=== PATIENT | male | born 1960 | race Caucasian/White ===

== ENCOUNTER → 2024-03-27 | Outpatient (CLI) | payer SELFPAY, OTHER ==
--- NOTE | 2024-03-27 07:33 | CT_ITS ---
EXAM: CT RIGHT LOWER EXTREMITY WITHOUT INTRAVENOUS CONTRAST CLINICAL INDICATION: templating for right TKA TECHNIQUE: Helically acquired images were obtained of the right lower extremity without intravenous contrast. 2-D reformats were performed by the technologist. CTDIvol = ( 18.81 ) mGy, DLP = ( 1090.21 ) mGycm This CT exam was performed using one or more of the following dose reduction techniques: automated exposure control, adjustment of the mA and/or kV according to patient size, and/or use of iterative reconstruction technique. COMPARISON: No relevant prior studies available. FINDINGS: BONES/JOINTS: Ankle mortise is intact. Small subchondral lucencies indicating osteochondral defect or lesion at the lateral talar dome. This can be further investigation with MRI if concerned. Moderate tricompartmental osteoarthrosis, worse at the medial femorotibial compartment with 8 mm of lateral subluxation of the tibia relative to the femur. Mild to moderate right hip joint osteoarthrosis. At least a moderate amount suprapatellar joint fluid. Small bone island at the femoral head. No acute or healing fracture or malalignment. SOFT TISSUES: Unremarkable. No soft tissue swelling or gas. No radiopaque foreign body. VASCULATURE: Peripheral vascular calcifications at the level of the ankle. No soft tissue masses or fluid collections. OTHER FINDINGS: Distal colonic diverticulosis but no acute diverticulitis. No free fluid in the pelvis. CT/Extremity Lower without Contra IMPRESSION: 1. Moderate tricompartmental osteoarthrosis, worse at the medial femorotibial compartment with 8 mm of lateral subluxation of the tibia relative to the femur. 2. At least a moderate amount suprapatellar joint fluid. 3. Ankle mortise is intact. Small subchondral lucencies indicating osteochondral defect or lesion at the lateral talar dome. This can be further investigation with MRI if concerned. Electronically Signed: Sanford House MD at 10:52 EDT ,
== END | disposition home or self-care (01) ==
LOC: CT 07:28
PROVIDERS: PCP Family Medicine; Referring Provider Orthopaedic Surgery; Visit Provider Orthopaedic Surgery
DX: M17.11 Unilateral primary osteoarthritis, right knee (principal)
CPT/HCPCS: 73700

== ENCOUNTER 2024-04-11 08:50 | Day surgery (SDC) | payer SELFPAY, OTHER ==
[2024-03-27 08:21] LABS: Absolute Lymphocyte Count 1.74 X10^3/uL (0.83-4.51); Absolute Neutrophil Count 4.1 X10^3/uL (2.0-7.7); Basophil# 0.08 X10^3/uL; Basophil% 1.2 % (0-1); Eosinophil# 0.14 X10^3/uL; Eosinophils% 2.1 % (0-5); Hematocrit 42.4 % (40-54); Hemoglobin 14.6 g/dL (13.0-16.5); Lymphocyte # 1.74 X10^3/ul (0.83-4.51); Lymphocyte % 25.5 % (19-41); Mean Corp Hgb Conc 34.4 g/dL (32-36); Mean Corpuscular Hgb 31.2 pg (27.0-32.0); Mean Corpuscular Volume 90.6 fL (80-94); Mean Platelet Vol. 9.9 fl (6.2-12.0); Monocyte# 0.73 X10^3/uL; Monocyte% 10.7 % (0-10); NRBC Flagged by Analyzer 0 % (0-5); Neutrophil # 4.11 X10^3/uL (2.7-7.7); Neutrophil % 60.2 % (47-70); Platelet Count 213 K/mm3 (150-450); RBC Distribution Width CV 13.5 % (11.6-14.6); RBC Distribution Width SD 45.5 fl (35.1-43.9); Red Blood Count 4.68 M/mm3 (4.6-6.2); White Blood Count 6.8 K/mm3 (4.4-11.0)
[2024-03-27 08:29] LABS: Partial Thromboplast Time 26.5 Seconds (24.1-36.2); Prothrombin Time (Protime)PT. 12.7 SECONDS (11.7-14.9)
[2024-03-27 08:47] LABS: Anion Gap 6 (5-15); BUN 20 mg/dL (7-18); BUN/Creat Ratio 15.6 RATIO (10-20); Calcium,Total 8.9 mg/dL (8.5-10.1); Chloride 106 mmol/L (98-107); Creatinine, Serum 1.28 mg/dL (0.70-1.30); EST Glomerular Filtration Rate 61 mL/min (>60); Est Glom Filt Rate - Afr Amer 73 mL/min (>60); Glucose 99 mg/dL (74-106); Potassium 4.1 mmol/L (3.5-5.1); Sodium Level 141 mmol/L (136-145)
[2024-03-27 08:48] LABS: Magnesium 2.1 mg/dL (1.6-2.6)
[2024-03-27 08:54] LABS: Hemoglobin A1c 5.8 % (3.8-5.6)
[2024-03-28 04:08] LABS: Fructosamine 221 umol/L (0-285)
[2024-04-11] VITALS (13 sets, daily range): BP systolic 89–136; BP diastolic 66–95; PULSE 69–89; RESP 12–18; TEMP 36.3–37.4; O2SAT 94–100; BMI 23.5
[2024-04-11] MEDS: Lactated Ringers 1,000 ML 15 ML IV (09:38)
[2024-04-11] MEDS: Celecoxib 200 MG Capsule 400 MG PO (09:39)
[2024-04-11] MEDS: Acetaminophen 500 MG Tablet 1000 MG PO ×2 (09:40→16:10)
[2024-04-11] MEDS: Gabapentin 600 MG Tablet PO (09:40)
[2024-04-11] MEDS: Magnesium 1 GM over 15 mins IV (09:41)
--- NOTE | 2024-04-11 10:11 | PCM.PRE.AN2 ---
ASA Classification* ASA Classification ASA Classification: 2 Assessment & Plan Anesthesia* Anesthesia Assessment Anesthesia Assessment: Discussed sedation and/or anesthesia options, risks, benefits, and alternatives with patient/parents/legal guardian/POA. Questions invited. The patient/parents/legal guardian/POA seems to understand and agrees to proceed with anesthesia plan. Reviewed the physical assessment, medical history, allergy history and patient home medications list prior to surgery/procedure/anesthetic and documented any changes. Performed airway and anesthesia risk assessments. Anesthesia Type Anesthesia Type: MAC and Spinal History Source History Obtained from:: Patient and Chart Anesthesia Focused Assessment* Temperature: 99.3 F Pulse Rate: 74 Blood Pressure: 134/94 Respiratory Rate: 16 Pulse Ox: 100 Oxygen Delivery Method: Room Air Airway Assessment Mouth opens: >3 cm Mallampati Score: III Teeth Condition: Dentures (Patient has full plate on top.) and Missing (Patient is missing some teeth on the bottom. The rest are tight.) Neck Range of motion (ROM): Limited ROM (somewhat decreased extension. Full Gilman) Focused Labs Anesthesia Preop lab: CBC WBC 6.8 K/mm3 (4.4-11.0) 03/27/24 08:03 RBC 4.68 M/mm3 (4.6-6.2) 03/27/24 08:03 Hgb 14.6 g/dL (13.0-16.5) 03/27/24 08:03 Hct 42.4 % (40-54) 03/27/24 08:03 Plt Count 213 K/mm3 (150-450) 03/27/24 08:03 CHEMISTRY Potassium 4.1 mmol/L (3.5-5.1) 03/27/24 08:03 Sodium 141 mmol/L (136-145) 03/27/24 08:03 Magnesium 2.1 mg/dL (1.6-2.6) 03/27/24 08:00 BUN 20 mg/dL (7-18) H 03/27/24 08:03 Creatinine 1.28 mg/dL (0.70-1.30) 03/27/24 08:03 Glucose 99 mg/dL (74-106) 03/27/24 08:03 COAG PT 12.7 SECONDS (11.7-14.9) 03/27/24 08:03 Pre-Assessment Diagnosis/Proposed Procedure Planned Operative Procedure(s): RIGHT TOTAL KNEE ARTHROPLASTY Anesthesia History 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 When Was Last Pacemaker Check QUESTION #4 FULL TEXT: You/Your Family Experience fever (hyperthermia) with Anesthesia Last Oral Intake Last Oral intake: Last Oral Intake NPO since 07:15 04/11/24 09:13 Meds taken in AM with sips of No 04/11/24 09:13 water? Meds patient instructed to take am of surgery Any additional information?: Yes NPO since: 07:15 (Patient took Ensure at 7:15 AM.) Meds taken in AM with sips of water?: No PONV PONV - project reservoir engineer: PONV - project reservoir engineer Female No 03/22/24 10:52 HX of Motion Sickness No 03/22/24 10:52 HX of N/V After Surgery No 03/22/24 10:52 Non-Smoker Yes 03/22/24 10:52 Duration of Surgery greater Yes 03/22/24 10:52 than 60 minutes Number of Risk Factors 2 03/22/24 10:52 PONV Score Moderate Risk 03/22/24 10:52 Height & Weight Height & Weight: Anesthesia: Height & Weight Height 5 ft 6 in 04/11/24 09:13 Weight: 66 kg 04/11/24 09:13 Body Mass Index (BMI) 23.5 04/11/24 09:13 Respiratory Assessment Respiratory Assessment - project reservoir engineer: Respiratory Tract Infection Hx - project reservoir engineer Hx Respiratory Tract Infection No 03/22/24 10:52 STOP Sleep Apnea STOP Sleep Apnea - project reservoir engineer: STOP Sleep Apnea - project reservoir engineer Hx Hypertension No 03/22/24 10:52 Hx Sleep Apnea No 03/22/24 10:52 CPAP BIPAP Do you snore loudly (louder Yes 03/22/24 10:52 than talking or can be heard Do you often feel tired/ No 03/22/24 10:52 fatigued/ sleepy during daytime? Has anyone observed you stop Yes 03/22/24 10:52 breathing during sleep? STOP Results Positive 03/22/24 10:52 QUESTION #5 FULL TEXT : Do you snore loudly (louder than talking or can be heard through closed doors)? 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 Specify any problems Hx of Preganancy in last 3 N/A 03/22/24 10:52 Months Nurse Filling Out Transfusion DSCHRIBER 03/22/24 10:52 & Questions: Date: 03/22/24 03/22/24 10:52 Time: 10:54 03/22/24 10:52 Patient unable to answer at this time (ie. confused, unrespo /Reproduction History /Reproductive History - project reservoir engineer: /Reproductive Hx- project reservoir engineer Hx Now No 03/22/24 10:52 Gestational Age (in weeks): EDC: Hx Hx Para Hx Section SAB No 03/22/24 10:52 Active Medications Active Medications: Current Medications Generic Name Dose Route Start Last Admin Trade Name Freq PRN Reason Stop Dose Admin Acetaminophen 1,000 mg 04/11/24 11:00 04/11/24 09:40 Acetaminophen 500 Mg Tablet PO 04/11/24 11:01 1,000 mg X1 ONE Administration Celecoxib 400 mg 04/11/24 11:00 04/11/24 09:39 Celecoxib 200 Mg Capsule PO 04/11/24 11:01 400 mg X1 ONE Administration Dexamethasone Sodium Phosphate 10 mg 04/11/24 11:00 Dexamethasone 10 Mg/Ml Vial IV 04/11/24 11:01 X1 ONE Gabapentin 600 mg 04/11/24 11:00 04/11/24 09:40 Gabapentin 600 Mg Tablet PO 04/11/24 11:01 600 mg X1 ONE Administration Tranexamic Acid 1,000 mg/ 110 mls @ 660 mls/hr 04/11/24 11:00 Sodium Chloride IV 04/11/24 11:09 X1 ONE Tranexamic Acid 1,000 mg/ 110 mls @ 660 mls/hr 04/11/24 11:00 Sodium Chloride IV 04/11/24 11:09 X1 ONE Lactated Ringer's 1,000 mls @ 125 mls/hr 04/11/24 11:00 IV 04/11/24 18:59 .Q8H CHRISTOPHER Cefazolin Sodium 2 gm/ N/A 20 mls @ 400 mls/hr 04/11/24 11:00 IV 04/11/24 11:02 PREOP ONE Magnesium Sulfate 1 gm/ 102 mls @ 408 mls/hr 04/11/24 11:00 04/11/24 09:41 Dextrose IV 04/11/24 11:14 408 mls/hr X1 ONE Administration Lactated Ringer's 1,000 mls @ 15 mls/hr 04/11/24 09:00 04/11/24 09:38 IV 04/16/24 22:19 15 mls/hr .Q48H CHRISTOPHER Administration Protocol Insulin Human Lispro 1 - 6 unit 04/11/24 11:00 Insulin Lispro 100 Unit/Ml Insuln.Pen SC Q4H PRN PRN BG>/= 180, SEE PROTOCOL Protocol Scopolamine HBr 1 patch 04/11/24 11:00 Scopolamine 1mg/72hr Patch TD 04/11/24 11:01 X1 ONE PFSH Medical History Wears glasses Wears dentures Arthritis Restless legs Non-smoker Leg cramps History of pain when walking Home Medications ?Medication ?Instructions ?Recorded ?Last Taken ?Type FACTOR FIVE 800 mg PO DAILY 03/22/24 Unknown History LUNG AND SINUS 2 cap PO DAILY 03/22/24 Unknown History calcium-magnesium 750 mg-465 mg 1 tab PO DAILY 03/22/24 Unknown History tablet Allergy/AdvReac Type Severity Reaction Status Date / Time No Known Allergies Allergy Verified 04/11/24 09:12 Surgical History H/O hernia repair Hx of appendectomy Social History household members: family Smoking Status: Never smoker alcohol intake: never Review of Systems (Anesthesia) ROS Narrative System reviewed and no additional complaints, except as documented.
[2024-04-11 10:24] LABS: Bedside Glucose 103 mg/dL (74-106)
--- NOTE | 2024-04-11 10:25 | PCM.HP.BLA ---
History and Physical Date of Admission: 04/11/24 [facility] [address] [place] [address] OFFICE VISIT Date of Service: 02/14/24 MR#: [id number] Acct: [id number] Name: MIREILLE CUEVAS Rep #: [id number] : 1960 Provider: Dr. Zuhair Trent DO Age/Sex: 63/M Location: [facility] [place].[facility] Status: Signed Intake Vital Signs 02/14/2408:50 Height 5 ft 6 in Weight: 145 lb BMI 23.3 Intake Visit Reasons: RIGHT KNEE Accompanied by: Self Is patient in pain?: Yes Pain scale (1-10): 6 Allergies No Known Allergies Allergy (Unverified 02/14/24 08:50) Medications ?Medication ?Instructions ?Recorded ?Confirmed ?Type NK 02/14/24 02/14/24 History PFSH Surgical History (Updated 02/14/24 @ 08:51 by Nusrat Mcghee) H/O hernia repair Hx of appendectomy Social History (Updated 02/14/24 @ 08:52 by Nusrat Mcghee) household members: family Smoking Status: Never smoker alcohol intake: never HPI RIGHT KNEE Details: This documentation accurately reflects the service provided and the decisions made by me, Dr. Zuhair Trent, 02/14/24 0800. Part of today?s visit was documented by Nusrat Rodriguez, acting as scribe. MIREILLE CUEVAS is a 63 year old M here today for new patient for right knee pain. Patient notes that he has had right knee pain for a few years. 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 Patient denies any prior knee surgery. Patient complains of pain over his anterior knee and posterior knee. He is ambulating gait which is causing him muscle pain and pain into his hip. Patient has popping and clicking but not regular. Patient has knee instability. His pain is worse in the morning and he struggles to weightbear. Patient denies any physical therapy, bracing or anti-inflammatories. Patient took liquid biocell which wasnt helpful. He had xrays about a year and a half ago. Ortho Exam General General: Yes no acute distress Neurologic: Yes alert and Yes oriented x3 Psychologic: Yes reasonable and appropriate Right Knee Skin/Wound: Yes CDI, No erythema, No ecchymosis and No swelling Knee ROM: Yes ROM-Extension -20 to 0 and Yes ROM-Flexion 0-140 (110) Examination: Yes Med jt line tenderness, Yes Lat jt line tenderness and No Melanie's Test Stability: NML: Anterior Drawer, NML: Posterior Drawer, NML: Valgus 0, NML: Valgus 30, NML: Varus 0 and NML: Varus 30 Patella Translation: 1 Patella Grind: Yes KNEE: mild patellar grind with no instability. medial pain with medial melanie and lateral pain with lateral melanie with no click Left Knee Patella Translation: 1 Head: Normocephalic Atraumatic Chest: symmetrical rise, non-labored breathing, no audible wheeze Abdomen: no guarding, non-rigid Supplemental Info 02/14/2024 x-ray right knee: Advanced medial compartment arthrosis varus deformity there is moderate spurring of the patellofemoral joint Coding Level of Care Code Off vis,new,level 3 Diagnoses Primary osteoarthritis of right knee M17.11 Osteoarthritis type: primary Assessment and Plan Assessment and Plan (1) Osteoarthritis of right knee: Qualifiers: Osteoarthritis type: primary Qualified Code(s): M17.11 - Unilateral primary osteoarthritis, right knee Orders: Orders Knee 4 or More Views Today M25.561 - Pain in right knee Plan Educated the patient about the anatomy of the knee and etiology of his pain. 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 He will need a knee arthroplasty at some point although it is a big recovery so he can decide when to proceed with surgery. He will need to wait for a total knee arthroplasty for 3 months after any injection. The only thing to slow the progression is muscle strengthening and weight control. Spoke with the patient about the procedure, recovery, benefits and risks of a total knee arthroplasty. He might have a mechanical feel. Patient will be on blood thinners post op to prevent a blood clot. He will be off work for about 3 months. He will need to do formal physical therapy post op to prevent knee stiffness. Explained if he continues to have stiffness at 6 weeks post op, he might need a manipulation under anesthesia. Patient may do the iovera procedure preop to help with the incisional pain. Explained it may take up to 2 years to fully recover. Risks, benefits and alternatives of surgery reviewed including but not limited to bleeding, infection, nerve, artery and/or tissue damage, fracture, VTE, mechanical feel of the knee, continued pain, stiffness and expected post-operative course. He will be same day surgery. He is unable to take any NSAIDs for 7 day prior to surgery. Patient request surgery date April 11, 2024. Follow up for iovera or 2 week post op or sooner if pain, swelling, numbness or associated symptoms, or concerns develop. All questions answered. Patient in agreement of plan. 02/14/24 1038 <Electronically signed by Zuhair Trent DO> Date Zuhair Trent DO Cosigner Signature: Date (if applicable) CC: ~ I have examined the patient and the H&P has been reviewed. There are no clinical changes since date of exam.
--- NOTE | 2024-04-11 11:00 | KNEE_PTH ---
PATIENT: MIREILLE CUEVAS LOC: [facility] [place] U#:[id number] AGE/SX: 63/M ROOM: RE04/11/[address]: Dr. Zuhair Trent DO : 1960 BED: DIS: 04/11/2024 SPEC #: [id number] RECD: 04/11/24 16:36 STATUS: FAWAD REErik #: [id number] JULIET: 04/11/24 11:[address]: Zuhair Trent DEPT: SURGICAL PATHOLOGY RECD BY: Tg Dao ENTERED: 04/12/24 10:07 SP TYPE: TOTAL KNEE OTHR DR: Dr. William Burks MD Tissues: Knee, NOS Procedures: Decalcification bone/plaque Surgery Specimen Level IV HEADER OPERATION: Right total knee replacement arm assist PRE-OP DIAGNOSIS: Osteoarthritis of right knee TISSUE SUBMITTED: Right knee bone and tissue MICROSCOPIC DIAGNOSIS Bone and soft tissue, right knee, total knee replacement/resection: Pieces of bone with degenerative osteoarthritic changes. MICKEY: 04/17/2024 MICROSCOPIC DESCRIPTION Slides are reviewed. GROSS DESCRIPTION Received is one container designated bone and soft tissue right knee. The specimen consists of multiple fragments of johnson-yellow bone measuring in aggregate 14.0 x 9.0 x 3.0 cm. No soft tissue is identified. A number of bony fragments contain articular surfaces consistent with tibial plateau and femoral condyle and displaying prominent osteophyte formation, eburnation and bone erosion. Glass Blowing Instructor sections are submitted in one cassette after decalcification. 04/12/2024 TC:5 CPT: 06891, 62231
[2024-04-11] MEDS: Cefazolin 2 GM in Syringe IV ×2 (11:41→16:11)
[2024-04-11] MEDS: dexAMETHasone 10 MG/ML Vial IV (11:42)
[2024-04-11] MEDS: TXA 1000mg in NS100 100ml (IVPB at Closure) 660 MG IV (11:46)
[2024-04-11] MEDS: TXA 1000mg in NS100 100ml (IVPB at Incision) 660 MG IV (12:12)
[2024-04-11] MEDS: Epinephrine (1 mg/ml) 1 MG/ML VIAL (12:30)
[2024-04-11] MEDS: Bupivacaine 0.5% PF 10 ML VIAL (12:31)
[2024-04-11] MEDS: dexAMETHasone 4 MG/ML Vial (12:31)
[2024-04-11] MEDS: 0.9% Normal Saline (Pres. free 10 ML Vial (12:32)
--- NOTE | 2024-04-11 13:37 | RAD_ITS ---
STUDY: X-RAY - RIGHT KNEE REASON FOR EXAM: Male, 63 years old. post op in pacu -- in PACU TECHNIQUE: 2 view(s) of the knee. COMPARISON: 02/14/2024 FINDINGS: Normal visualized distal femur. Normal visualized proximal tibia and fibula. Normal proximal tibiofibular articulation. Interval recent total knee arthroplasty with skin milton and subcutaneous emphysema.. The soft tissue structures are unremarkable. RAD/Knee 1 or 2 Views IMPRESSION: Interval recent total knee arthroplasty. Electronically Signed: Elfego Ramirez MD at 11:27 EST ,
--- NOTE | 2024-04-11 13:39 | OP.PCM_ITS ---
Operative Report (Standard) Operative Information Surgery/Procedure Performed: Right total knee arthroplasty Surgeon: Zuhair Trent Date of Procedure: 04/11/24 Procedure Start Time: 11:58 Procedure Stop Time: 13:37 Pre-Operative Diagnosis: Right knee DJD Post-Operative Diagnosis: Same Select all DRAINS/GRAFTS/IMPLANTS that apply: None Type of Anesthesia: Spinal Estimated Blood Loss: 125 Specimen collected: No Description of surgery: Preoperative diagnosis: Right knee DJD Postoperative diagnosis: Same Procedure: Right total knee arthroplasty CT guided Robotic Assisted Implant: Niyah triathlon press fit, femoral component size 3, tibial baseplate size 4, asymmetric patella size 35, polyethylene X3 size 9 CS Anesthesia: Spinal with adductor canal block Tourniquet time: 12 minutes at 300 mmHg Complications: None Condition: Stable to PACU Estimated blood loss: 125 cc Chief Administrative Officer Chuck Abbasi. My physician bankruptcy assistant was a vital part of this case. He was important in appropriate retraction during the case, and protection of soft tissues during procedure. His intimate knowledge of the case and my steps aided in safe and expedient completion of the procedure as well as appropriate position of the extremity during the case. He was also vital in assisting with closure under my direct supervision. Indication for procedure: This is a 63-year-old male with long standing degenerative joint disease of the knee who has failed conservative treatment and wished to proceed with elective total knee arthroplasty. Risk benefits and alternatives were reviewed including; risk of bleeding, infection, nerve artery and tissue damage, continued pain, postoperative stiffness, venous thromboembolism, need for postoperative rehabilitation, mechanical feel to the knee, and expected postoperative course. The pre- operative CT and templating was performed with component sizing. Procedure: The patient was met in the preoperative holding area. The operative extremity was identified by both patient and physician and was marked. Patient was met by anesthesia. An adductor canal block was placed by anesthesia postoperatively the patient was brought back to the operating room on a wheeled cart and transferred to the operating table in the supine position. Anesthesia was started. A well-padded tourniquet was placed on the operative extremity. The patient was prepped and draped in the usual sterile fashion. A timeout was called to ensure the proper patient procedure and extremity were being contemplated. An esmarch was used to exsanguinate the extremity. The tourniquet was inflated. A 10 blade scalpel was used to make a midline incision down through the skin and subcutaneous tissue. Skin retractors placed. Bovie and Aquamantis were used to perform meticulous hemostasis. full-thickness flaps were elevated medial and lateral along the joint capsule. A deep blade scalpel was used to perform a medial parapatellar arthrotomy. The knee was brought to full extension. A bovie was used to release the soft tissues off the most proximal aspect of the medial tibial plateau, a three-quarter inch curved osteotome was also used in this process. The infrapatellar fat pad was excised. The suprapatellar fat pad was excised partially anteriorolateraly and portion the anterioromedial pad was elevated from the femur. At this point our intra- articular femoral array was placed at a 45 degree angle proximal and posterior to the medial epicondyle. femoral checkpoint was placed at this time. Our tibial array was placed partially intra incisional 1 stab incision was made for the inferior pin with a 15 blade scaple, and pins were placed and attached to the tibial array , tibial checkpoint was placed in the proximal tibial metaphysis. Tourniquet was let down. At this point registration moralez were taken throughout the knee . Once the knee was registered we then tensioned the medial and lateral ligaments in extension and 90 degrees of flexion. We then used these numbers to adjust our components within parameters to balance the knee in both flexion and extension once this was done on our monitor we then proceeded with using the robotic arm to make our tibial plateau cut, anterior and posterior chamfer and distal femur cuts. we removed the cut fragments with the use of a bovie and Aaron, we did use a lamina poultry tender to insure we visualized and removed all posterior osteophytes and at this time also used the Aquamantis on the posterior joint capsule. we then trialed and achieved the desired plan with a well-balanced knee. we used the green probe to addie the corresponding tibial rotation based on our CT template. Lug holes were drilled in the femur the tibia preparation was completed with the appropriate sized base plate pinned based on previous rotation addie. An appropriate sized fin punch was used on the tibia and 4 corner drill was used for the press fit component and the patella was prepared by first using a caliper to ensure sufficient bone stock and a patellar reamer to remove the desired amount of bone. lug holes drilled for an asymmetric poly. We then brought the knee through range of motion with excellent patellar tracking. We thoroughly irrigated the knee. Trial components were removed a posterior capsular injection was preformed with our standard cocktail. In addition the aqua Mantis was also used to aid in hemostasis. Betadine rinse was allowed to sit and washed out completely. Components were press-fit into place. Aricept rinse was then used followed by several more liters of irrigation after it was allowed to sit. The joint capsule was closed with #1 Ethibond [id number] in the upper part of the arthrotomy and #1 Vicryl in the lower part of the arthrotomy. , Followed by 2-0 Vicryl in the subcutaneous tissues with milton in the skin. Arrays and checkpoints were removed prior to closure all counts were correct stab incisions were closed with a staple standard dressing in the form of Mepilex AG for the main incision and a small Mepilex over the pin holes. Thigh-high SUNG hose applied over top of dressing. Patient tolerated the procedure well and was directed to PACU in stable condition . There were no intraoperative complications. Surgical Findings: DJD knee Rn Production cement paver: Yes Disabilities Services Officer: Chuck Abbasi Tasks completed by pharmacy affairs assistant: Closing Complications Complications: No
--- NOTE | 2024-04-11 13:41 | EX.PCM.DISCH ---
Discharge Instructions Diet Discharge Diet: No restrictions Dressing / Incision Call your doctor if you observe: Shortness of breath and Chest pain Additional Dressing/Incision Instructions:: Ice and elevate lower extremities 2 weeks while not ambulating. Ambulation is encouraged. Weight bearing as tolerated. Use assistive devise for stability. Encourage FULL knee extension and flexion 1 time EVERY time you get up and down and MULTIPLE times per day. No showering until 72 hours after surgery. May begin showering postop day #3. Remove the dressing prior to shower and gently wash with warm water and antibacterial soap then pat dry and place abdominal pad (or plain gauze) and SUNG hose over top. This is to be done daily. Do not submerge for 3 weeks. If not showering daily after the initial 72 hours then you must clean incision and change dressing daily after the dressing comes off, must come off by 7 days postop. Do not allow animals near the incision area. Keep clean. Follow anti-coagulation recommendations as prescribed. Do not take any NSAIDs while on blood thinner. Do not take any additional narcotic pain medication other than what was prescribed on your surgery day without discussing with physician. Narcotic medication can be addictive. Do not drink alcohol while taking narcotics. Supplement narcotic prescription with acetaminophen 1000 mg 4 times a day. Start physical therapy. If you are not currently scheduled for physical therapy or you are unsure of appointment time please call office [facility] to arrange. Call Dr. Trent with any concerns. Follow Up Care Please Follow Up With: Zuhair Trent DO When: 2 weeks Test Results: Test results from this visit will be discussed in further detail at your follow-up appointment, if applicable. Discharge Plan Admission Primary Reason for Your Visit: Right total knee arthroplasty Attending Provider: Zuhair Trent Primary Care Provider: William Burks Instructions Print Language: Swedish Discharge Orders/Prescriptions Prescriptions: New acetaminophen 500 mg tablet 1,000 mg PO Q6H Qty: 90 0RF cephalexin 500 mg capsule 1,000 mg PO Q8H Qty: 4 0RF Rx Instructions: Take 2 tabs before you go to bed and 2 tabs after 5 AM morning after surgery when you wake up oxycodone 5 mg tablet 5 - 10 mg PO Q6H PRN (Reason: pain) 7 Days Qty: 60 0RF Eliquis 2.5 mg tablet 2.5 mg PO BID Qty: 30 0RF Rx Instructions: Begin morning after surgery. Continued FACTOR FIVE 800 mg PO DAILY calcium-magnesium 750-465 mg tablet 1 tab PO DAILY LUNG AND SINUS 2 cap PO DAILY Referrals / Follow Up: [facility], [Med Staff - Active Staff] - Disposition Disposition (needs filled in before D/C Order can be placed): Home, Self Care
--- NOTE | 2024-04-11 13:52 | PCM.POST.ANE ---
Anesthesia: Postop Eval I Current Vital Signs Temperature: 97.5 F Pulse Rate: 89 Blood Pressure: 117/76 Respiratory Rate: 14 Pulse Ox: 98 Oxygen Delivery Method: Room Air Assessment Airway patent: Yes Spontaneous unlabored respirations: Yes Mental status: Awake and Calm nausea: No Vomiting: No Anesthesia Complication: No Fluid Hydration Crystalloid volume administer (ml): 900 Total IV fluid infused: 900 Progress Note Anesthesia document: Postop Eval 1 completed: Yes
[2024-04-11] MEDS: Scopolamine 1mg/72hr Patch 1 PATCH TD (15:12)
[2024-04-11] MEDS: 0.9% Normal Saline (1000mL) 1,000 ML 125 ML IV (15:15)
--- NOTE | 2024-04-12 09:13 | POSTOPAN2_ITS ---
Anesthesia Postop Eval I Sum Postop Eval Completion status Anesthesia document: Postop Eval 1 completed: Yes Anesthesia Postop Eval I Summary Anesthesia Postop Eval I Summary: Anesthesia Postop Eval I: Assessment Summary Airway patent Yes 04/11/24 13:53 VIDEO PRODUCTION [email or web address] Spontaneous unlabored Yes 04/11/24 13:53 VIDEO PRODUCTION [email or web address] respirations Mental status Awake,Calm 04/11/24 13:53 VIDEO PRODUCTION [email or web address].[email or web address] nausea No 04/11/24 13:53 VIDEO PRODUCTION [email or web address].[email or web address] Vomiting No 04/11/24 13:53 VIDEO PRODUCTION [email or web address].[email or web address] Anesthesia Postop Eval I: Fluid Summary Crystalloid volume administer 900 04/11/24 13:53 VIDEO PRODUCTION [email or web address].[email or web address] (ml) Colloids volume administered ( ml) Blood Product volume administered (ml) Total IV fluid infused 900 04/11/24 13:53 VIDEO PRODUCTION [email or web address].[email or web address] Anesthesia Postop Eval I: Summary Notes Anesthesia Complication No 04/11/24 13:53 VIDEO PRODUCTION [email or web address].[email or web address] Anesthesia Complication Comment: Post-operative progress note Anesthesia: Postop Eval II Evaluation Mental status: Awake and Calm Pain Level: 1 nausea: No Vomiting: No Complications Anesthesia Complication: No
--- NOTE | 2024-04-12 09:13 | PCM.POSTANE2 ---
Anesthesia Postop Eval I Sum Postop Eval Completion status Anesthesia document: Postop Eval 1 completed: Yes Anesthesia Postop Eval I Summary Anesthesia Postop Eval I Summary: Anesthesia Postop Eval I: Assessment Summary Airway patent Yes 04/11/24 13:53 DRY COLOR [email or web address] Spontaneous unlabored Yes 04/11/24 13:53 DRY COLOR [email or web address].[email or web address] respirations Mental status Awake,Calm 04/11/24 13:53 DRY COLOR [email or web address] nausea No 04/11/24 13:53 DRY COLOR [email or web address].[email or web address] Vomiting No 04/11/24 13:53 DRY COLOR [email or web address].[email or web address] Anesthesia Postop Eval I: Fluid Summary Crystalloid volume administer 900 04/11/24 13:53 DRY COLOR [email or web address].GDOTT (ml) Colloids volume administered ( ml) Blood Product volume administered (ml) Total IV fluid infused 900 04/11/24 13:53 DRY COLOR [email or web address].GDOTT Anesthesia Postop Eval I: Summary Notes Anesthesia Complication No 04/11/24 13:53 DRY COLOR [email or web address].GDOTT Anesthesia Complication Comment: Post-operative progress note Anesthesia: Postop Eval II Evaluation Mental status: Awake and Calm Pain Level: 1 nausea: No Vomiting: No Complications Anesthesia Complication: No
== END 2024-04-11 20:08 | disposition home or self-care (01) ==
LOC: SDC 08:50 → AC 08:50
PROVIDERS: Anesthesiology; PCP Family Medicine; Referring Provider Orthopaedic Surgery; Visit Provider Orthopaedic Surgery
PROC: 0SRC0JZ Replacement of Right Knee Joint with Synthetic Substitute, Open Approach (ICD-10-PCS; CPT 27447; principal; 2024-04-11 10:30)
DX: M17.11 Unilateral primary osteoarthritis, right knee (principal); M25.361 Other instability, right knee
CPT/HCPCS: 27447; S2900; 01402; 64450; 36415; 73560; 80048; 82962; 82985; 83036; 83735; 85025; 85610; 85730; 86850; 86900; 86901; 87077; 87081; 88305; 88311; 93005; 97162; C1776; J7030; J7120; J2405; J3475; J3490